=== PATIENT | female | born 1990 | race Caucasian/White ===

== ENCOUNTER → 2017-09-06 | Outpatient (CLI) | payer SELFPAY ==
--- NOTE | 2017-09-06 16:41 | RADIOLOGY REPORT (SQ) ---
EXAM DESCRIPTION: U/S [id number] TRNABD 1GES W/ODOP COMPLETED DATE/TIME: 09/06/2017 4:12 pm REASON FOR STUDY: Z34.01 ENCNTR FOR SUPRVSN OF NORMAL FIRST PREG, FIRST TRIMESTER Z34.01 ENCNTR FOR SUPRVSN OF NORMAL FIRST PREG, FIRST TRIMES LMP estimated 07/02/2017 COMPARISON: None. TECHNIQUE: Transvaginal static and realtime grayscale images acquired of the pelvis. Additional mary cted spectral and color Doppler images recorded. All images stored on PACs. bHCG: Not available. LIMITATIONS: None. FINDINGS: EGA: 7 weeks 1 day based upon gestational sac size. pole is not identified. No fet al heart motion. Yolk sac is present. MARK: 04/24/2018 FHR: Not present. Beats per minute. SUBCHORIONIC BLEED: No SIZE OF BLEED: Not applicable. UTERUS: No masses. No anomalies. CERVICAL LENGTH: 2.9 cm. Closed. RIGHT ADNEXA: Normal ovary. 3.2 x 2.9 x 2.3 cm. No adnexal free fluid. No adnexal masses. LEFT ADNEXA: With ovary not seen. No adnexal free fluid. No adnexal masses. FREE FLUID: A small amount of free fluid is present. OTHER: No other significant finding. IMPRESSION: LIVING INTRAUTERINE . EGA 7 weeks 1 day based upon gestational sac size. Follow-up as clinically indicated. Trimester of : First - 0 to 13 weeks. TECHNICAL DOCUMENTATION: JOB ID: [id number] [employer]- All Rights Reserved
== END ==
LOC: RAD 15:17
PROVIDERS: ATTEND Nurse Practitioner Women's Health
DX: Z34.01 Encounter for supervision of normal first pregnancy, first trimester (principal)
CPT/HCPCS: 76801

== ENCOUNTER → 2017-09-20 | Outpatient (CLI) | payer SELFPAY ==
--- NOTE | 2017-09-20 17:17 | RADIOLOGY REPORT (SQ) ---
EXAM DESCRIPTION: U/S [id number] TRNABD 1GES W/ODOP COMPLETED DATE/TIME: 09/20/2017 3:56 pm REASON FOR STUDY: O36.80X0 W INCONCLUSIVE VIABILITY, UNSP O36.80X0 W INCO NCLUSIVE VIABILITY, UNSP COMPARISON: 09/06/2017 Ob ultrasound TECHNIQUE: Transabdominal static and realtime grayscale images acquired of the pelvis. Additional se lected spectral and color Doppler images recorded. All images stored on PACs. bHCG: None available LIMITATIONS: Left adnexal bowel gas, left ovary not seen FINDINGS: An intrauterine gestational sac is present, containing an embryo and yolk sac. Yolk sac i s large, 10 mm in diameter. There is a 6 week 5 day embryo present, without cardiac activity on real -time scanning, color Doppler, or M-mode Doppler. There is subchorionic hemorrhage along the fundal aspect of the gestational sac. UTERUS: No masses. No anomalies. Uterus measures 9.8 x 5.5 by 5.5 cm in size. CERVICAL LENGTH: 2 cm Closed. RIGHT ADNEXA: Normal ovary with normal vascular flow. Right ovary 3.1 x 1.6 cm in size with a 1.5 cm cyst, likely the corpus luteum. No adnexal free fluid. No adnexal masses. LEFT ADNEXA: Not well seen due to adnexal bowel gas FREE FLUID: None. OTHER: No other significant finding. IMPRESSION: Abnormal 1st trimester , intrauterine gestational sac is identified with large yolk sac and an embryo measuring 6 weeks 5 days without cardiac activity. Fundal small subchorionic hemorrhage. Trimester of : First - 0 to 13 weeks. COMMENT: These results were discussed with the patient at the time of scanning TECHNICAL DOCUMENTATION: JOB ID: [id number] [employer]- All Rights Reserved
== END ==
LOC: RAD 15:59
PROVIDERS: ATTEND Nurse Practitioner Women's Health
DX: O36.80X0 Pregnancy with inconclusive fetal viability, not applicable or unspecified (principal)
CPT/HCPCS: 76801

== ENCOUNTER → 2017-09-28 | Outpatient (CLI) | payer SELFPAY | LOC: OCH 14:40 | PROVIDERS: ATTEND Nurse Practitioner Women's Health | DX: Z34.01 Encounter for supervision of normal first pregnancy, first trimester (principal) | CPT/HCPCS: 36415; 84702 ==

== ENCOUNTER → 2017-10-03 | Outpatient (CLI) | payer SELFPAY ==
--- NOTE | 2017-10-03 17:43 | RADIOLOGY REPORT (SQ) ---
EXAM DESCRIPTION: U/S [id number] TRNABD 1GES W/ODOP COMPLETED DATE/TIME: 10/03/2017 5:27 pm REASON FOR STUDY: Z34.81 ENCOUNTER FOR SUPRVSN OF NORMAL , FIRST TRIMESTER Z34.81 ENCOUNTE R FOR SUPRVSN OF NORMAL , FIRST TRIM COMPARISON: OB ultrasound 09/06/2017, 09/20/2017 TECHNIQUE: Transabdominal static and realtime grayscale images acquired of the pelvis. Additional se lected spectral and color Doppler images recorded. All images stored on PACs. Patient declined endovaginal exam. bHCG: None available LIMITATIONS: None. FINDINGS: UTERUS: No masses. No anomalies. Uterus is 7.5 x 7 x 4.8 cm in size. Endometrial stripe 1.3 cm in thickness. CERVICAL LENGTH: 2.2 cm. Closed. RIGHT ADNEXA: Not visualized due to adnexal bowel gas LEFT ADNEXA: Not visualized due to adnexal bowel gas FREE FLUID: None. OTHER: No other significant finding. IMPRESSION: Ovaries not visualized due to adnexal bowel gas. Uterus is 7.5 x 7 x 4.8 cm in size, no intrauterine gestational sac is identified. TECHNICAL DOCUMENTATION: JOB ID: [id number]- All Rights Reserved
== END ==
LOC: RAD 16:13
PROVIDERS: ATTEND Nurse Practitioner Women's Health
DX: Z34.81 Encounter for supervision of other normal pregnancy, first trimester (principal)
CPT/HCPCS: 76801

== ENCOUNTER → 2017-10-03 | Outpatient (CLI) | payer SELFPAY | LOC: LAB 17:18 | PROVIDERS: ATTEND Nurse Practitioner Women's Health | DX: Z34.01 Encounter for supervision of normal first pregnancy, first trimester (principal) | CPT/HCPCS: 36415; 84702 ==